=== PATIENT | male | born 1960 | race African-American/Black ===

== ENCOUNTER 2023-04-06 10:59 | Outpatient (CLI) | payer OTHER | END 2023-04-06 11:00 | disposition home or self-care (01) | LOC: BICRAD 10:59 | PROVIDERS: ATTEND Preventive Medicine Occupational Medicine | DX: M17.11 Unilateral primary osteoarthritis, right knee (principal); M51.16 Intervertebral disc disorders with radiculopathy, lumbar region; M47.26 Other spondylosis with radiculopathy, lumbar region; I70.0 Atherosclerosis of aorta; I70.8 Atherosclerosis of other arteries; M89.38 Hypertrophy of bone, other site; M47.817 Spondylosis without myelopathy or radiculopathy, lumbosacral region | CPT/HCPCS: 72100 ==